=== PATIENT | female | born 1965 | race Asian ===

== ENCOUNTER → 2024-02-01 14:55 | Outpatient (REF) | payer BC, SELFPAY | LOC: HWWDC 14:55 | PROVIDERS: ATTENDING PHYSICIAN Nurse Practitioner | DX: Z12.31 Encounter for screening mammogram for malignant neoplasm of breast (principal) | CPT/HCPCS: 77063; 77067 ==

== ENCOUNTER → 2024-08-13 15:06 | Outpatient (REF) | payer BC, SELFPAY | LOC: CLAB 15:06 | PROVIDERS: ATTENDING PHYSICIAN Orthopaedic Surgery Hand Surgery | DX: M67.431 Ganglion, right wrist (principal) | CPT/HCPCS: 88304 ==

== ENCOUNTER → 2025-03-05 15:07 | Outpatient (REF) | payer BC, SELFPAY | LOC: HWWDC 15:07 | PROVIDERS: ATTENDING PHYSICIAN Internal Medicine | DX: Z12.31 Encounter for screening mammogram for malignant neoplasm of breast (principal) | CPT/HCPCS: 77063; 77067 ==